=== PATIENT | male | born 1970 | race Caucasian/White ===

== ENCOUNTER 2019-08-27 11:46 | Emergency (ER) | payer SELFPAY ==
[2019-08-27 11:58] VITALS: BP 134/91; PULSE 63; TEMP 97.7; BMI 26.8
[2019-08-27] MEDS ORDERED: IBUPROFEN 400 MG TABLET (FP) PO ONE ×2 (12:30→12:33)
--- NOTE | 2019-08-27 12:45 | PDOC ---
History of Present Illness - General Chief Complaint: Injury Stated Complaint: SWELLING OF THE RT FOOT Time Seen by Provider: 08/27/19 11:59 History Source: Patient Exam Limitations: Clinical Condition - History of Present Illness Initial Comments: 08/27/19 12:40 Patient with no significant past medical history presented with complaint of right knee and lateral aspect of right foot pain status post slip and fall yesterday twisting right knee. Patient report increased pain to right knee and foot with ambulation. Patient reports taking Aleve yesterday for pain but nothing today. Denies numbness or tingling sensation. Denies hitting head or loss of consciousness. Patient denies any other symptoms Occurred: reports: yesterday Past History - Past Medical History Allergies/Adverse Reactions: Allergies Allergy/AdvReac Type Severity Reaction Status Date / Time No Known Allergies Allergy Verified 08/27/19 11:58 Home Medications: Ambulatory Orders Naproxen 500 mg PO BID PRN #20 tablet 08/27/19 COPD: No - Psycho Social/Smoking Cessation Hx Smoking History: Current every day smoker Number of Cigarettes Smoked Daily: 2 Information on smoking cessation initiated: No Hx Alcohol Use: Yes Drug/Substance Use Hx: No Review of Systems - Review of Systems Able to Perform ROS?: Yes Is the patient limited Greek proficient: No Constitutional: No: Malaise, Weakness HEENTM: No: Symptoms Reported Respiratory: No: Symptoms reported Cardiac (ROS): No: Symptoms Reported ABD/GI: No: Symptoms Reported Musculoskeletal: Yes: Symptoms Reported, See HPI, Joint Pain (right knee pain), Joint Swelling (swelling to medial aspect of right knee), Muscle Pain (lateral aspect of right foot). No: Muscle Weakness Integumentary: Yes: Symptoms Reported, See HPI. No: Bruising Neurological: No: Symptoms reported, Numbness, Paresthesia, Tingling All Other Systems: Reviewed and Negative *Physical Exam - Vital Signs Last Vital Signs Temp Pulse Resp BP Pulse Ox 97.7 F 63 16 134/91 95 08/27/19 11:55 08/27/19 11:55 08/27/19 11:55 08/27/19 11:55 08/27/19 11:55 - Physical Exam Comments: 08/27/19 12:43 GENERAL: Well developed, well nourished. Awake and alert in mild acute distress. PULMONARY: No evidence of respiratory distress. MUSCULOSKELETAL : Moderate tenderness to medial collateral ligament and medial aspect of right knee. Mild localized swelling to medial aspect of right knee. Mild tenderness to lateral aspect of right proximal foot with mild localized swelling. No bony deformities SKIN: Warm and dry. Normal capillary refill. Localized swelling to medial aspect of right knee and lateral aspect of proximal right foot. No ecchymosis or bruising to ankle or foot or knee. NEUROLOGICAL: Alert, awake, appropriate. No motor deficits in the lower extremities. Gait is normal without ataxia. PSYCHIATRIC: Cooperative. Good eye contact. Appropriate mood and affect. General Appearance: Yes: Nourished, Appropriately Dressed, Mild Distress ED Treatment Course - RADIOLOGY Radiology Studies Ordered: Category Date Time Status ANKLE & FOOT-RIGHT* [RAD] Stat Radiology 08/27/19 12:17 Taken KNEE 3 POS-RIGHT [RAD] Stat Radiology 08/27/19 12:17 Taken - Medications Given in the ED: ED Medications Discontinued Medications Generic Name Dose Route Start Last Admin Trade Name Freq PRN Reason Stop Dose Admin Ibuprofen 800 mg 08/27/19 12:30 08/27/19 12:35 Motrin - PO 08/27/19 12:31 800 mg ONCE ONE Administration Medical Decision Making - Medical Decision Making 08/27/19 12:41 Patient with no significant past medical history presented with complaint of right knee and lateral aspect of right foot pain status post slip and fall yesterday twisting right knee. Patient report increased pain to right knee and foot with ambulation. Patient reports taking Aleve yesterday for pain but nothing today. Denies numbness or tingling sensation. Denies hitting head or loss of consciousness. Patient denies any other symptoms Exam significant for moderate tenderness to medial aspect of right knee with mild localized swelling to medial aspect of right knee. Moderate tenderness to lateral aspect of right proximal foot with mild localized swelling to lateral aspect of right proximal foot. No tenderness to ankle. Negative anterior posterior drawer stress of right ankle and knee. Patient symptoms likely knee and ankle foot sprain versus less likely fracture. X-ray of right knee and foot ordered to rule out fracture. Motrin 800 mg p.o. ordered for pain 08/27/19 13:12 X-ray of right knee, ankle and foot shows no acute fracture dislocation. Patient symptoms likely ankle sprain with right foot and knee sprain. Right knee and foot wrapped with Zack bandage. Patient stable for discharge on naproxen as needed for pain with advised to do hot compress and keep leg elevated as needed for so with orthopedics follow-up Discharge - Discharge Information Problems reviewed: Yes Clinical Impression/Diagnosis: Contusion of right knee, initial encounter Sprain of right foot Qualifiers: Encounter type: initial encounter Qualified Code(s): S93.601A - Unspecified sprain of right foot, initial encounter Condition: Stable Disposition: HOME - Admission No - Additional Discharge Information Prescriptions: Naproxen 500 mg PO BID PRN #20 tablet PRN Reason: pain - Follow up/Referral Referrals: Jone Mary DO [Staff Physician] - - Patient Discharge Instructions Patient Printed Discharge Instructions: How to Use an Elastic Bandage-Knee Sprain, DI for Knee Sprain, DI for Foot Sprain Additional Instructions: X-ray of your right knee and foot shows no acute fracture or dislocation. Symptoms likely caused by knee and foot sprain. Take prescribed medication as needed for pain. Apply hot compress 2-3 times a day for 5 to 10 minutes as needed for swelling. Keep right leg elevated while at home. Follow-up referred to orthopedics if no improvement in 4 days La radiografa de la rodilla y el pie derechos no muestra fracturas o luxaciones agudas. Sntomas probablemente causados ??por esguince de rodilla y pie. Nebo los medicamentos recetados segn sea necesario para el dolor. Aplique jim compresa caliente 2-3 veces al da delta 5 a 10 minutos segn sea necesario para la hinchazn. Mantenga la pierna derecha elevada mientras est en casa. Seguimiento referido a ortopedia si no mejora en 4 tubbs Print Language: MAURITANIAN - Post Discharge Activity Work/Back to School Note: Back to Work
== END 2019-08-27 13:11 | disposition home or self-care (01) ==
LOC: JERFT 11:46
DX: S80.01XA Contusion of right knee, initial encounter (principal); S93.491A Sprain of other ligament of right ankle, initial encounter; S93.691A Other sprain of right foot, initial encounter; W18.39XA Other fall on same level, initial encounter; Y93.01 Activity, walking, marching and hiking; Y92.018 Other place in single-family (private) house as the place of occurrence of the external cause; Y99.8 Other external cause status; F17.210 Nicotine dependence, cigarettes, uncomplicated
CPT/HCPCS: 73562-TC-RT-FY; 73610-TC-RT-FY; 73630-TC-RT-FY; 99281-25

== ENCOUNTER 2019-10-14 11:06 | Emergency (ER) | payer SELFPAY ==
[2019-10-14 11:31] VITALS: BP 117/85; PULSE 90; TEMP 98; BMI 28.0
--- NOTE | 2019-10-14 13:58 | PDOC ---
History of Present Illness - General Chief Complaint: Pain Stated Complaint: KNEE PAIN Time Seen by Provider: 10/14/19 12:55 - History of Present Illness Initial Comments: 10/14/19 13:56 49-year-old male without comorbidities presents for evaluation of right knee pain from a twisting type injury which occurred 3 months ago Past History - Past Medical History Allergies/Adverse Reactions: Allergies Allergy/AdvReac Type Severity Reaction Status Date / Time No Known Allergies Allergy Verified 10/14/19 11:31 Home Medications: Ambulatory Orders Naproxen 500 mg PO BID PRN #20 tablet 08/27/19 COPD: No - Psycho Social/Smoking Cessation Hx Smoking History: Never smoked Number of Cigarettes Smoked Daily: 2 Hx Alcohol Use: Yes Drug/Substance Use Hx: No Review of Systems - Review of Systems Musculoskeletal: Yes: Joint Pain *Physical Exam - Vital Signs Last Vital Signs Temp Pulse Resp BP Pulse Ox 98 F 90 18 117/85 98 10/14/19 11:26 10/14/19 11:26 10/14/19 11:26 10/14/19 11:26 10/14/19 11:26 - Physical Exam 10/14/19 13:57 Right knee skin color temperature normal. The patient keeps his knee locked at 15 degrees of flexion and resists any motion unable to ascertain tenderness. Thigh and calf are soft and nontender and is neurovascular intact Medical Decision Making - Medical Decision Making 10/14/19 13:57 There is a hard patient to examine 3 months after injury I will refer him to orthopedic surgery he may weight-bear as tolerated Tylenol and Motrin for pain Discharge - Discharge Information Problems reviewed: Yes Clinical Impression/Diagnosis: Right knee pain Condition: Stable Disposition: HOME - Admission No - Follow up/Referral Referrals: Jone Mary DO [Staff Physician] - - Patient Discharge Instructions Additional Instructions: Return to the emergency room for worsening symptoms or without fail follow-up with orthopedic surgery in 2 to 3 days for further evaluation and treatment options. - Post Discharge Activity
== END 2019-10-14 14:05 | disposition home or self-care (01) ==
LOC: JERFT 11:06
DX: M25.561 Pain in right knee (principal); X50.1XXS Overexertion from prolonged static or awkward postures, sequela
CPT/HCPCS: 99281-25

== ENCOUNTER 2020-11-09 04:32 | Day surgery (SDC) | payer OTHER ==
[2020-11-06 09:00] VITALS: BMI 25.1
[2020-11-09] MEDS ORDERED: PROPOFOL 20 ML ONE ×3 (09:28→09:47)
[2020-11-09] MEDS ORDERED: MIDAZOLAM HCL 2 MG/2 ML SINGLE DOSE VIAL ONE (09:28)
[2020-11-09] MEDS ORDERED: DEXAMETHASONE SOD PHOSPHATE 4 MG/1 ML VIAL ONE (09:51)
[2020-11-09] MEDS ORDERED: KETOROLAC TROMETHAMINE 30 MG/1 ML VIAL ONE (09:51)
[2020-11-09] MEDS ORDERED: ONDANSETRON 4 MG/2 ML VIAL ONE (09:51)
[2020-11-09] MEDS ORDERED: ceFAZolin SODIUM 1 GM VIAL ONE (09:51)
[2020-11-09] MEDS ORDERED: BUPIVACAINE HCL/PF 0.5% (5 MG/ML) 30 ML VIAL IJ ONE (10:10)
[2020-11-09] MEDS ORDERED: ceFAZolin SODIUM 1 GM VIAL IVPB ONE (10:10)
[2020-11-09] MEDS ORDERED: ONDANSETRON 4 MG/2 ML VIAL IVPUSH PRN (10:33)
[2020-11-09] MEDS ORDERED: oxyCODONE HCL 5 MG TABLET PO PRN (10:33)
[2020-11-09] MEDS ORDERED: LACTATED RINGERS SOLUTION 1,000 ML IV SCH (10:45)
[2020-11-09 14:11] VITALS: BP 135/88; PULSE 68; TEMP 98.4
== END 2020-11-09 14:11 | disposition home or self-care (01) ==
LOC: JASU-SURG 04:32
PROVIDERS: ATTEND Orthopaedic Surgery
PROC: 0SQC4ZZ Repair Right Knee Joint, Percutaneous Endoscopic Approach (ICD-10-PCS; 2020-11-09)
PROC: 0SBC4ZZ Excision of Right Knee Joint, Percutaneous Endoscopic Approach (ICD-10-PCS; principal; 2020-11-09 08:00)
DX: S83.241A Other tear of medial meniscus, current injury, right knee, initial encounter (principal); M17.11 Unilateral primary osteoarthritis, right knee; X58.XXXA Exposure to other specified factors, initial encounter; Y93.9 Activity, unspecified; Y92.9 Unspecified place or not applicable; Y99.9 Unspecified external cause status
CPT/HCPCS: 73560-TC-RT-FY; 88304-TC; 94760; 97116-GP

== ENCOUNTER 2024-03-26 11:07 | Emergency (ER) | payer SELFPAY ==
[2024-03-26 11:21] VITALS: PULSE 67; RESP 20; BMI 28.4
[2024-03-26 12:20] LABS: PH,URINE 5.5 (5.0-8.0); URINE APPEARANCE CLEAR; URINE BILIRUBIN NEGATIVE (NEGATIVE); URINE COLOR YELLOW; URINE GLUCOSE (UA) NEGATIVE (NEGATIVE); URINE KETONE NEGATIVE (NEGATIVE); URINE LEUK ESTERASE NEGATIVE (NEGATIVE); URINE NITRITE NEGATIVE (NEGATIVE); URINE PROTEIN TRACE (NEGATIVE); URINE UROBILINOGEN 0.2 mg/dL (0.2-1.0)
[2024-03-26 12:42] LABS: POTASSIUM 4.6 mmol/L (3.5-5.1)
[2024-03-26 12:44] LABS: CALCIUM 9.4 mg/dL (8.5-10.1)
[2024-03-26 12:45] LABS: ALBUMIN 3.9 g/dl (3.4-5.0); BLOOD UREA NITROGEN 10.5 mg/dL (7-18)
[2024-03-26 12:46] LABS: BASO % 0.9 % (0-2.0); EOS % 2.3 % (0-4.5); HEMOGLOBIN 16.7 GM/dL (11.7-16.9); LYMPH % 28.4 % (8-40); MCH 32.2 pg (25.7-33.7); MCHC 33.5 g/dl (32.0-35.9); MEAN PLT VOLUME 8.7 fl (7.5-11.1); MONO % 7.9 % (3.8-10.2); NEUT % 60.5 % (42.8-82.8); PLATELET COUNT 277 10^3/uL (134-434); RDW 13.5 % (11.9-15.9); WHITE BLOOD COUNT 7.7 K/mm3 (4.0-10.0)
[2024-03-26 12:48] LABS: CREATININE 0.8 mg/dL (0.55-1.3)
[2024-03-26 12:49] LABS: BILIRUBIN,TOTAL 1.4 mg/dL (0.2-1)
[2024-03-26 12:50] LABS: TOT PROT 7.1 g/dl (6.4-8.2)
[2024-03-26 15:16] VITALS: BP 138/85; TEMP 97.7
== END 2024-03-26 16:22 | disposition home or self-care (01) ==
LOC: JER 11:07
DX: R10.84 Generalized abdominal pain (principal); R11.0 Nausea
CPT/HCPCS: 36415; 74176-TC; 80053; 81003; 85025; 87077; 87086; 99284-25

== ENCOUNTER 2025-05-20 10:02 | Emergency (ER) | payer OTHER ==
[2025-05-20 10:09] VITALS: RESP 18; BMI 24.4
[2025-05-20] MEDS ORDERED: ACETAMINOPHEN INJECTION 100 ML ONE (11:23)
[2025-05-20] MEDS ORDERED: MAG HYDROX/AL HYDROX/SIMETH 30 ML UNIT-DOSE CUP ONE (11:24)
[2025-05-20] MEDS ORDERED: FAMOTIDINE 20 MG/50 ML IVPB 20 MG/50 ML MG IVPB ONE (11:24)
[2025-05-20 12:00] LABS: ABSOLUTE IMMATURE GRANULOCYTES 0.02 x10^3/uL (0.0-0.031); BASOPHILS # 0.02 x10^3/uL (0.01-0.08); EOSINOPHIL % 3.4 % (0.8-7.0); EOSINOPHILS # 0.23 x10^3/uL (0.04-0.54); MCHC 32.9 g/dl (32.3-36.5); MEAN CELL VOLUME 93.7 fl (79.0-92.2); MEAN PLT VOLUME 10.1 fl (9.4-12.4); MONOCYTE # 0.49 x10^3/uL (0.30-0.82); MONOCYTE % 7.3 % (5.3-12.2); RDW 12.3 % (12.2-16.1)
[2025-05-20] MEDS: MAG HYDROX/AL HYDROX/SIMETH -MYLANTA- ORAL SUSPENSION PO ONE (12:00)
[2025-05-20] MEDS: ACETAMINOPHEN 1000 MG/100 ML BAG IVPB ONE (12:00)
[2025-05-20] MEDS: SODIUM CHLORIDE 1,000 ML IV STA ×2 (12:00→14:15)
[2025-05-20] MEDS: FAMOTIDINE 20 MG/50 ML IVPB 20 MG/50 ML MG IVPB ONE (12:00)
[2025-05-20 12:12] LABS: INR 1.05 (0.83-1.09); PROTHROMBIN TIME (PATIENT) 11.4 SEC (9.7-13.0)
[2025-05-20 12:14] LABS: ACTIVATED PTT 28.7 SECONDS (25.2-36.5)
[2025-05-20 12:33] LABS: GLUCOSE,RANDOM 82.0 mg/dL (74-106); TOT PROT 6.4 g/dl (6.4-8.2)
[2025-05-20 12:34] LABS: CO2 22.0 mmol/L (21-32)
[2025-05-20 12:35] LABS: ALK PHOS 76.0 U/L (40-150)
[2025-05-20 12:38] LABS: SGOT/AST 31.0 U/L (5-34); SGPT/ALT 19.0 U/L (0-55)
[2025-05-20 12:39] LABS: CREATININE 0.84 mg/dL (0.55-1.3)
[2025-05-20 13:01] LABS: HCV DIAGNOSTIC IN-HOUSE W/RFLX NON-REACTIVE (NONREACTIVE); HIV INTERPRETATION NEGATIVE (NEGATIVE)
[2025-05-20 15:47] VITALS: BP 128/97; PULSE 56; TEMP 97.9
== END 2025-05-20 17:32 | disposition home or self-care (01) ==
LOC: JER 10:02
PROC: 3E033GC Introduction of Other Therapeutic Substance into Peripheral Vein, Percutaneous Approach (ICD-10-PCS; principal; 2025-05-20)
PROC: 3E033NZ Introduction of Analgesics, Hypnotics, Sedatives into Peripheral Vein, Percutaneous Approach (ICD-10-PCS; 2025-05-20)
PROC: 3E0337Z Introduction of Electrolytic and Water Balance Substance into Peripheral Vein, Percutaneous Approach (ICD-10-PCS; 2025-05-20)
DX: K62.5 Hemorrhage of anus and rectum (principal); R10.13 Epigastric pain; R11.0 Nausea; K64.8 Other hemorrhoids
CPT/HCPCS: 36415; 74177-TC; 76705-TC; 80053; 82272; 83735; 85025; 85610; 85730; 86803; 86850; 86900; 86901; 87086; 87389; 99285-25; Q9967